=== PATIENT | female | born 1970 | race Caucasian/White ===

== ENCOUNTER 2019-02-22 23:08 | Emergency (ER) | payer OTHER ==
[~2019-02-22] VITALS: Ht 157.5 cm; Wt 69.2 kg
[~2019-02-22 23:08] MED LIST: BEN25 PO; FAMO-96 PO; HC30CR25 TOP
[2019-02-22 23:20] VITALS: BP 127/61; PULSE 61; RESP 18; Ht 157.5 cm; Wt 69.2 kg
[2019-02-23] MEDS ORDERED: FAMOTIDINE 20 MG TAB PO ONE
[2019-02-23] MEDS ORDERED: DEXAMETHASONE 10 MG/ML 1 ML INJ IM ONE
[2019-02-23] MEDS ORDERED: DIPHENHYDRAMINE 50 MG CAP PO ONE
== END 2019-02-23 00:28 | disposition home or self-care (01) ==
LOC: FTE 23:08
DX: L50.9 Urticaria, unspecified (principal)
CPT/HCPCS: 96372; 99284; J1100